=== PATIENT | male | born 1960 | race Hispanic/Latino ===

== ENCOUNTER 2018-11-03 09:09 | Day surgery (SDC) | payer MEDICARE, OTHER ==
[2018-11-03] MEDS ORDERED: NACL 0.9% 500 ML 500 ML ONE (10:22)
[2018-11-03 10:23] LABS: Hematocrit 36.6 % (35.5-45.6); Hemoglobin 12.4 gm/dl (11.8-15.2); Mean Corpuscular HGB Conc 34 % (32-34); Mean Corpuscular Volume 85 fl (84-94); Platelet Count 333 K/mm3 (140-440); Red Blood Count 4.32 M/mm3 (3.65-5.03); Red Cell Distribution Width 13.8 % (13.2-15.2)
[2018-11-03 10:34] LABS: INR 0.89 (0.87-1.13); Partial Thromboplastin Time 33.8 Sec. (24.2-36.6)
[2018-11-03 10:50] LABS: Calcium 7.7 mg/dL (8.4-10.2)
[2018-11-03] MEDS ORDERED: NACL 0.9% 500 ML 500 ML IV SCH ×2 (11:00→12:00)
[2018-11-03] MEDS ORDERED: HEPARIN/NS 5000 UNIT/500ML(CATH LAB) 500 ML IR ONE (12:43)
[2018-11-03] MEDS ORDERED: TORADOL ONE (12:44)
[2018-11-03] MEDS: VERSED ONE ×2 (12:54→13:18)
[2018-11-03] MEDS: SUBLIMAZE ONE ×2 (12:54→13:13)
[2018-11-03] MEDS: XYLOCAINE 2% INFILTRATI ONE ×2 (12:56→12:58)
--- NOTE | 2018-11-03 13:34 | Short Stay Summary ---
Short Stay Documentation Date of service: 11/03/18 - History Principal diagnosis: Venous Compression H&P: obtained from office - Allergies and Medications Current Medications: Allergies No Known Allergies Allergy (Unverified 11/03/18 09:10) Home Medications Medication Instructions Recorded Confirmed Last Taken Type Lisinopril [Zestril TAB] 40 mg PO DAILY 11/03/18 11/03/18 11/03/18 History 40mg Nebivolol HCl [Bystolic] 20 mg PO DAILY 11/03/18 11/03/18 11/03/18 History 20mg amLODIPine [Norvasc] 5 mg PO DAILY 11/03/18 11/03/18 11/03/18 History 5mg cycloSPORINE, MODIFIED [Neoral] 100 mg PO DAILY 11/03/18 11/03/18 11/03/18 History 100mg predniSONE [Deltasone] 5 mg PO DAILY 11/03/18 11/03/18 11/03/18 History 5mg Active Medications Sodium Chloride (Nacl 0.9% 500 Ml) 500 mls @ 150 mls/hr IV DIRECT MARY GRACE Last Admin: 11/03/18 11:54 Dose: 150 mls/hr Documented by: - Brief post op/procedure progress note Date of procedure: 11/03/18 Pre-op diagnosis: Venous compression/venous hypertension Post-op diagnosis: same Procedure: BLE venogram, IVUS, venoplasty and stenting Anesthesia: local Surgeon: DONNIE KO Estimated blood loss: minimal Pathology: none Condition: stable - Disposition Condition at discharge: Good Disposition: [id number] TO HOME OR SELFCARE Short Stay Discharge Plan Activity: advance as tolerated Weight Bearing Status: Weight Bear as Tolerated Diet: regular Wound: keep clean and dry, per your surgeon's advice Follow up with: PRIMARY CARE, [Primary Care Provider] - 7 Days
--- NOTE | 2018-11-03 13:43 | Operative Report ---
Operative Report Operative Report: Exam: Bilateral lower extremity venogram, intravascular ultrasound, venoplasty with stent placement. Clinical indication: Patient with a history of venous hypertension with bilateral lower extremity edema, skin discoloration, burning pain and ultrasound evidence of elevated velocities in his iliac veins. Date: 11/03/2018 Procedure: Following an explanation of the risks, benefits and alternatives; written informed consent was obtained. The patient was brought to the angiographic suite and was placed in supine position on the examination table. Initial ultrasound evaluation of his leg demonstrated patent femoral veins proximally. The patient's legs were prepped and draped in the usual sterile fashion. 1% lidocaine was used for anesthesia. Under ultrasound guidance, the right femoral vein was cannulated with a 7 cm 18- gauge needle. A 0.035 guidewire was advanced centrally. The needle was removed and a 5 [place] Sheath Placed. Access to the proximal left femoral vein was obtained in a similar fashion and an additional 5 [place] Sheath Placed. Venography was performed through the sheaths simultaneously. This demonstrates significant compression of the left common iliac pain at its origin extending to involve the entire left common iliac vein. There is long segment narrowing of the right external iliac vein secondary to extrinsic compression. A decision was made to further evaluate with intravascular ultrasound. The sheaths were upsized over the guidewires for 10 [place] sheaths. Intravascular ultrasound was first performed from the right from the IVC into the sheath insertion site. Intravascular ultrasound was performed from the left from the IVC to the sheath side insertion site. Imaged vessels include the IVC, right common iliac vein, right external iliac vein, right common femoral vein, left common iliac vein, left external iliac vein, left common femoral vein. 50- 60% stenosis is noted within the external iliac vein with prestenotic dilatation. Focal 70-80% stenosis is present at the origin of the left common iliac vein with extension into a 60% stenosis involving the mid and distal left common iliac vein. A 16 mm x 140 mm Venovo stent was advanced through the left sheath. A 16 mm x 120 mm Venovo stent was deployed through the right sheath. The stents were deployed in kissing fashion. The stents were seated using 14 mm balloons. Post-placement venography demonstrated residual less than 10% stenosis bilaterally. The guidewires and sheaths were removed and hemostasis achieved using manual compression. A sterile compression dressing was applied. The patient tolerated the procedure well. There were no immediate post procedure complications. Conscious sedation was performed under the guidance of radiologic nursing. Continuous cardiopulmonary monitoring was utilized. Impression: 1) Bilateral lower extremity venogram demonstrating significant compression of the left common iliac vein and right external iliac vein. 2) Intravascular ultrasound of the IVC, bilateral common iliac veins, bilateral external iliac veins and bilateral common femoral veins demonstrating 50-60% stenosis involving the right external iliac vein with prestenotic dilatation and 70-80% stenosis involving the left common iliac vein. 3) Treatment of these lesions with venoplasty and stent placement as described with residual less than 10% stenosis bilaterally.
[2018-11-03] MEDS ORDERED: NORCO 5/325 PO PRN (15:37)
[2018-11-03 15:52] LABS: Basophils % (Manual) 0 % (0.0-1.8); RBC Morphology Normal; Total Cells Counted 100
[2018-11-03 16:01] VITALS: BP 137/89
== END 2018-11-03 09:10 | disposition home or self-care (01) ==
LOC: CATH 09:09 → CATHLABREC 09:09
PROVIDERS: ATTEND Radiology Diagnostic Radiology
DX: I87.1 Compression of vein (principal); I10 Essential (primary) hypertension; M19.90 Unspecified osteoarthritis, unspecified site; F17.210 Nicotine dependence, cigarettes, uncomplicated; Z72.89 Other problems related to lifestyle; Z79.899 Other long term (current) drug therapy; Z82.61 Family history of arthritis; Z83.49 Family history of other endocrine, nutritional and metabolic diseases; Z82.49 Family history of ischemic heart disease and other diseases of the circulatory system; Z79.01 Long term (current) use of anticoagulants
CPT/HCPCS: 36415; 37238; 37239; 37252; 37253; 75822; 76937; 80048; 85007; 85025; 85610; 85730; 99156; 99157; C1725; C1753; C1769; C1894; J1644; J1885; J2250; J3010; J7040; Q9967